=== PATIENT | female | born 1980 | race Caucasian/White ===

== ENCOUNTER 2020-11-22 02:12 | Emergency (ER) | payer OTHER ==
[~2020-11-22] VITALS: Ht 175.3 cm; Wt 88.5 kg
[2020-11-22] MEDS ORDERED: AMPHETAMINE SAL30 MG PO (03:57)
[2020-11-22] MEDS ORDERED: PROZAC20 MG PO (03:57)
[2020-11-22] MEDS ORDERED: EUTHYROX50 MCG PO (03:57)
[2020-11-22] MEDS ORDERED: PRENATAL PO (03:58)
[2020-11-22 05:51] LABS: ABSOLUTE NEUTROPHILS 14.1 thou/uL (1.4-8.2); BASOPHILS 0.2 % (0.0-2.0); EOSINOPHILS 0.4 % (0.0-3.0); HEMATOCRIT 34.7 % (37.0-47.0); HEMOGLOBIN 11.9 gm/dL (12.0-15.0); LYMPHOCYTES 10.5 % (24.0-44.0); MCH 32.9 pg (26.0-34.0); MCHC 34.3 g/dL (28.0-37.0); MCV 95.9 fL (80.0-100.0); MONOCYTES 3.9 % (1.0-8.0); PLATELET COUNT 237 thou/uL (150-400); RBC 3.61 mil/uL (4.20-5.00); RDW 13.1 % (10.5-14.5); WBC 16.6 thou/uL (4.0-11.0)
[2020-11-22 06:07] LABS: CALCIUM 8.6 mg/dL (8.5-10.1); CREATININE 0.9 mg/dL (0.6-1.0); POTASSIUM 3.9 mmol/L (3.5-5.1)
[2020-11-22 06:35] LABS: URINE BILIRUBIN NEGATIVE (Negative); URINE BLOOD 3+ (Negative); URINE COLOR YELLOW; URINE GLUCOSE-RANDOM* NEGATIVE (Negative); URINE KETONES 3+ (Negative); URINE LEUKOCYTES-REFLEX NEGATIVE (Negative); URINE NITRITE-REFLEX NEGATIVE (Negative); URINE PROTEIN (DIPSTICK) 1+ (Negative); URINE SPECIFIC GRAVITY >= 1.030 (1.005-1.035)
[2020-11-22 06:40] LABS: URINE CLARITY SL HAZY
[2020-11-22 06:41] LABS: URINE REDUCING SUBSTANCE NEGATIVE
[2020-11-22 06:50] LABS: CASTS None Seen /LPF (None Seen); SQUAMOUS 4-10 Moderate /LPF (0-3)
[2020-11-22 06:51] LABS: CALCIUM OXALATE 4-10 Moderate /LPF (None Seen); MUCUS >6 Heavy strn/LPF (None Seen)
[2020-11-22 06:52] LABS: BACTERIA-REFLEX >30 Many /HPF (None Seen); URINE RBC >20 Many /HPF (NONE SEEN); URINE WBC-REFLEX 0-5 Rare /HPF (0-5)
[2020-11-22] MEDS ORDERED: NORCO5 PO (07:22)
[2020-11-22] MEDS ORDERED: CEPHALEXIN500 MG PO (07:22)
[2020-11-22] MEDS ORDERED: REGLAN10 MG PO (07:22)
[2020-11-22 07:30] VITALS: BP 104/52
== END 2020-11-22 07:30 | disposition home or self-care (01) ==
LOC: ER 02:12
PROVIDERS: Emergency Medicine
DX: O23.02 Infections of kidney in pregnancy, second trimester (principal); Z3A.21 21 weeks gestation of pregnancy; N21.1 Calculus in urethra; Z79.899 Other long term (current) drug therapy